=== PATIENT | male | born 1955 | race Caucasian/White ===

== ENCOUNTER 2023-07-23 13:21 | Outpatient (CLI) | payer OTHER, SELFPAY ==
--- NOTE | ~2023-07-23 | CT_ITS ---
EXAMINATION: CT thoracic lumbar wo con DATE: 07/23/2023 13:50 INDICATION: Low back pain, unspecified. TECHNIQUE: Computed tomography (CT) of the thoracic and lumbar spine was performed without intravenou s contrast. Automated exposure control and iterative reconstruction technique were employed. The dose -length product was 2465.26 mGy-cm. COMPARISON: None FINDINGS: CT THORACIC SPINE: Bone alignment is normal. There is mild chronic height loss of T6-T12 vertebral ingrid dies associated with Schmorl's nodes. There is severe cervical spondylosis. There is mildly decreased disc height at most thoracic levels. In the thoracic spine, there is multilevel mild to moderate fac et joint osteoarthritis. There is mild neural foraminal stenosis at many thoracic levels bilaterally. There is mild central canal stenosis at T7-T8 and T10-T11. CT LUMBAR SPINE: There is 5 degrees levocurvature of lumbar spine. There is 3 mm retrolisthesis of L2 on L3 and 3 mm anterolisthesis of L4 on L5. There are chronic compression fractures of L3 and L4 wit h changes of vertebroplasties . There is mildly decreased disc height at L1-L2, moderately decreased disc height at L2-L3, and severely decreased disc height at L3-L4, L4-L5, and L5-S1. There is interbo dy fusion at L5-S1. 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 Osseous central spinal canal is dev elopmentally small in lumbar spine. The following disc levels are specifically discussed: L1-L2: The disc is bulging. There is severe bilateral facet joint osteoarthritis. There is mild later al neural foraminal stenosis. There is mild central canal stenosis. L2-L3: The disc is bulging. There is severe bilateral facet joint osteoarthritis. There is moderate b ilateral neural foraminal stenosis. There is mild central canal stenosis. L3-L4: The disc is bulging. There is severe bilateral facet joint osteoarthritis. There is moderate b ilateral neural foraminal stenosis. There is moderate central canal stenosis. L4-L5: The disc is bulging. There is severe bilateral facet joint osteoarthritis. There is moderate b ilateral neural foraminal stenosis. There is severe central canal stenosis. L5-S1: The disc is bulging. There is severe bilateral facet joint osteoarthritis. There is moderate b ilateral neural foraminal stenosis. There is mild central canal stenosis. IMPRESSION: 1. Mild thoracic spondylosis and severe lumbar spondylosis. Reviewed, dictated and finalized at location E. [facility]
== END 2023-07-23 13:22 | disposition home or self-care (01) ==
LOC: ANHIMG 13:22
PROVIDERS: PCP Family Medicine; Visit Provider Family Medicine
DX: M47.894 Other spondylosis, thoracic region (principal); M47.896 Other spondylosis, lumbar region
CPT/HCPCS: 72128; 72131